=== PATIENT | female | born 1995 | race Caucasian/White ===

== ENCOUNTER 2021-12-21 20:40 | Emergency (ER) | payer OTHER ==
[~2021-12-21] VITALS: Ht 162.6 cm; Wt 77.3 kg
[2021-12-21] MEDS ORDERED: ROXICODONE 55 MG/TAB PO (23:12)
[2021-12-21] MEDS ORDERED: NAPROSYN500 MG PO (23:12)
[2021-12-21] MEDS ORDERED: ZOFRAN ODT4 MG PO (23:12)
[2021-12-21 23:24] VITALS: BP 104/75; PULSE 79
[2021-12-25] MEDS ORDERED: ROXICODONE 55 MG/TAB PO (07:55)
[2021-12-25] MEDS ORDERED: NAPROSYN500 MG PO (07:55)
== END 2021-12-21 23:24 | disposition home or self-care (01) ==
LOC: COL.ER 20:40
DX: S42.001A Fracture of unspecified part of right clavicle, initial encounter for closed fracture (principal); S80.212A Abrasion, left knee, initial encounter; V00.141A Fall from scooter (nonmotorized), initial encounter